=== PATIENT | female | born 1980 | race Two or more races ===

== ENCOUNTER → 2019-10-21 | Day surgery (SDC) | payer BC ==
[~2019-10-21] MED LIST: ACETAMINOPHEN 1000 MG/100 ML IV ONE; ATORVASTATIN CA20 MG PO; BUPIVACAINE 0.25% 30ML SDV INJ ONE; BUPIVACAINE 0.5%/EPI 30 ML SDV INJ ONE; CALCITRIOL0.25 MCG PO; CALCIUM PO; DESFLURANE 240 ML BTL INH ONE; DEXAMETHASONE SOD PHOS INJ 4 MG/ML VIAL ONE; FENTANYL CITRATE/PF 100MCG/2 ML INJ ONE; IRON PO; KETOROLAC TROMETHAMINE 30 MG/ML VIAL ONE; LEVOTHYROXINE112 MCG PO; LIDOCAINE HCL 2% LOCAL INJ 5 ML SDV VIAL INJ ONE; MIDAZOLAM HCL 2 MG/2 ML VIAL ONE; ONDANSETRON HCL INJ 2MG/ML 2ML 2 MG/ML VIAL ONE; PROPOFOL IV EMULSION 10 MG/ML 20 ML VIAL ONE; ROCURONIUM BROMIDE 10 MG/ML 5ML VIAL IV ONE; VIT C PO; VIT D PO
[2019-10-21 06:30] LABS: BASOPHILS # (AUTO) 0.1 (0.0-0.1); BASOPHILS % 0.3 % (0.0-1.0); EOSINOPHILS # (AUTO) 0.5 (0.0-0.4); EOSINOPHILS % 3.1 % (0.0-6.0); HEMOGLOBIN 11.9 g/dL (12.0-16.0); LYMPHOCYTES # (AUTO) 3.3 (1.0-3.2); LYMPHOCYTES % 21.8 % (18.0-39.1); MEAN CORPUSCULAR HEMOGLOBIN 25.6 pg (28-32); MEAN CORPUSCULAR HGB CONC 31.3 g/dL (31-35); MEAN CORPUSCULAR VOLUME 81.9 fL (81-99); MONOCYTES # (AUTO) 0.7 (0.2-0.8); MONOCYTES % 4.9 % (4.4-11.3); NEUTROPHILS # (AUTO) 10.5 (2.1-6.9); NEUTROPHILS % 69.2 % (38.7-80.0); PLATELET COUNT 350 x10e3/uL (140-360); RED BLOOD COUNT 4.64 x10e6/uL (3.6-5.1); RED CELL DISTRIBUTION WIDTH 14.9 % (11.7-14.4)
[2019-10-21 06:47] LABS: ALANINE AMINOTRANSFERASE 16 IU/L (0-55); ALBUMIN 3.9 g/dL (3.5-5.0); ALBUMIN/GLOBULIN RATIO 0.9 (0.8-2.0); ALKALINE PHOSPHATASE 70 IU/L (40-150); ANION GAP 12.7 mmol/L (8-16); BLOOD UREA NITROGEN 12 mg/dL (7-26); BUN/CREATININE RATIO 17 (6-25); CARBON DIOXIDE 27 mmol/L (22-29); CHLORIDE 106 mmol/L (98-107); CREATININE, SERUM 0.71 mg/dL (0.57-1.11); EST GLOMERULAR FILTRATION RATE > 60 ML/MIN (60-); GLUCOSE 99 mg/dL (74-118); POTASSIUM 3.7 mmol/L (3.5-5.1); SODIUM 142 mmol/L (136-145)
--- NOTE | 2019-10-21 07:10 | NUR ---
SPIRITUAL CARE - Pre-Surgery Assessment: Pt in bed. Pt's at bedside. Pt reported supportive attention from family and friends. Intervention: I provided pastoral presence, hospitality, and sympathetic listening. I acquainted pt with availability of wood veneer taper while hospitalized. Outcome: Pt expressed appreciation for visit. No need for follow up indicated at this time. [facility] Spiritual Care Department O: [phone]
[2019-10-21 10:15] VITALS: BP 119/73
--- NOTE | 2019-10-21 11:40 | Operative Report ---
DATE OF PROCEDURE: 10/21/2019 SURGEON: Essence Kidd MD SURGEON: Essence Quintana MD CHIEF WHARFINGER: BRITTNI Melendez. PREOPERATIVE DIAGNOSES: 1. Left ovarian cyst. 2. Suspected intermittent ovarian torsion. 3. Abnormal uterine bleeding. POSTOPERATIVE DIAGNOSES: Left adnexal cyst of the left fallopian tube as well as endometrial polyps. PROCEDURES PERFORMED: Laparoscopic left salpingectomy and a dilatation and curettage, and hysteroscopic polypectomy. ANESTHESIA: General. ESTIMATED BLOOD LOSS: Minimal. URINE OUTPUT: Per anesthesia record. FLUIDS IN: Per anesthesia record. COMPLICATIONS: None. FINDINGS: An approximately 13 cm simple fluid-filled left adnexal cyst, which was attached to primarily the fallopian tube and partially to the ovary. The uterus was noted to be enlarged with multiple fibroids. Hysteroscopic findings included multiple endometrial polyps and an otherwise normal appearance of the endometrial cavity. INDICATIONS: The patient is a 39-year-old female with a large left ovarian cyst, approximately 13 cm in size, causing intermittent severe pain, suspicious for ovarian torsion. She also suffers from abnormal uterine bleeding and anemia, and desired definitive surgical management for this problem. PROCEDURE NOTE: Prior to the procedure, the risks, benefits, indications, and alternatives were discussed and the patient agreed to proceed. Following anesthesia, the patient was placed in modified dorsal lithotomy position in [facility]. Prepping and draping were performed in typical sterile fashion and a time-out was done. A HUMI was placed to manipulate the uterus and attention was then turned to the abdomen. The infraumbilical port site was identified and injected with solution of 0.5% Marcaine with epinephrine and a small vertical infraumbilical incision was made with a scalpel. A 10 mm trocar was placed at the umbilicus under direct visualization with a 10 mm laparoscope. At this time, a survey of the abdomen and pelvis was done with the findings noted above; it was noted that there was a significant amount of clear free fluid inside of the abdominal cavity and it appeared that the ovarian cyst had begun to collapse. There was no obvious trocar entry site into the cyst sac, but a rupture of the cyst by surgical means cannot be excluded. The cyst fluid was then suctioned and sample sent for cytology. Two additional ports were then placed in the patient's left and right lower quadrant after injection with Marcaine. Both were placed approximately 4 cm anterior and superior to the ASIS. Both were 5 mm ports and inserted atraumatically under direct visualization with the laparoscope. The cyst was then held with a blunt retractor on gentle tension and the cyst was serially excised using a LigaSure device to sequentially coagulate and cut. The cyst was from the ovary, but the fallopian tube could not be from the cyst and this was also removed using LigaSure device. The 10 mm camera was then traded for a 5 mm camera and placed through one of the accessory ports. A 10 mm EndoCatch bag was placed through the trocar site at the umbilicus and the cyst was placed within this bag and removed from the abdomen. The pelvic cavity was irrigated and cleared of all excess fluid. The 10 mm port site at the umbilicus was then removed under direct visualization and a Vance Lord device were placed in the site and used to close the peritoneum and fascia in a mass closure technique using a 0 Vicryl suture. The remaining 5 mm ports were then removed under direct visualization. Abdomen was desufflated. All skin incisions were closed with 3-0 Monocryl in a subcuticular fashion and covered with Dermabond. Attention was then turned to the hysteroscopy portion of the procedure. A weighted speculum was placed in the vagina and the anterior lip of the cervix grasped with a single-tooth tenaculum. The cervix was serially dilated in order to allow for advancement of the TruClear hysteroscope into the uterine cavity to the level of the uterine fundus. Uterine cavity was then explored with the above-noted findings. The TruClear device was then used to morcellate and remove the polyps under direct visualization. All curettings were sent for pathology. A survey of the uterine cavity then revealed a normal-appearing and intact cavity. All instruments were then removed from the patient's vagina. The tenaculum site was noted to be bleeding despite pressure and two single [id number] sutures of 0 Vicryl were placed at the tenaculum sites, ensuring hemostasis. All instruments and Garcia catheter were removed, and the patient was awakened and brought to recovery room in stable condition. All sponge, lap, needle, and instrument counts were correct x2 at the completion of procedure. Essence E Kidd, MD MEF/MODL /[id number]
== END | disposition home or self-care (01) ==
LOC: OR 06:00
PROVIDERS: ATTEND Obstetrics & Gynecology Obstetrics
DX: D27.1 Benign neoplasm of left ovary (principal); N84.0 Polyp of corpus uteri; D25.9 Leiomyoma of uterus, unspecified; E07.9 Disorder of thyroid, unspecified; Z87.891 Personal history of nicotine dependence
CPT/HCPCS: 36415; 58558; 58661; 80053; 84702; 85025; 86850; 86900; 88305; 88307; J2250; J2405; J3010; 88112; 88304; J1100; J1885; J2001

== ENCOUNTER → 2020-07-09 | Outpatient (CLI) | payer OTHER ==
[~2020-07-09] MED LIST changes: -ACETAMINOPHEN 1000 MG/100 ML IV ONE; -BUPIVACAINE 0.25% 30ML SDV INJ ONE; -BUPIVACAINE 0.5%/EPI 30 ML SDV INJ ONE; +COVID-19 VACC, MRNA(MODERNA)/PF 100 MCG/0.5 ML VIAL IM ONE; -DESFLURANE 240 ML BTL INH ONE; -DEXAMETHASONE SOD PHOS INJ 4 MG/ML VIAL ONE; -FENTANYL CITRATE/PF 100MCG/2 ML INJ ONE; -KETOROLAC TROMETHAMINE 30 MG/ML VIAL ONE; -LIDOCAINE HCL 2% LOCAL INJ 5 ML SDV VIAL INJ ONE; -MIDAZOLAM HCL 2 MG/2 ML VIAL ONE; -ONDANSETRON HCL INJ 2MG/ML 2ML 2 MG/ML VIAL ONE; -PROPOFOL IV EMULSION 10 MG/ML 20 ML VIAL ONE; -ROCURONIUM BROMIDE 10 MG/ML 5ML VIAL IV ONE
== END ==
LOC: VACCPMC 07:30
DX: Z23 Encounter for immunization (principal); Z20.828 Contact with and (suspected) exposure to other viral communicable diseases

== ENCOUNTER → 2020-08-12 | Outpatient (CLI) | payer OTHER | END | DRG 951 | LOC: VACCPMC 07:30 | DX: Z23 Encounter for immunization (principal); Z20.822 Contact with and (suspected) exposure to COVID-19 | CPT/HCPCS: 0012A; 91301 ==